=== PATIENT | male | born 1960 | race Caucasian/White ===

== ENCOUNTER 2016-12-16 11:44 | Emergency (ER) | payer SELFPAY ==
[~2016-12-16] VITALS: Ht 170.2 cm; Wt 75.5 kg
[2016-12-16 11:49] VITALS: Ht 170.2 cm; Wt 75.5 kg
--- NOTE | 2016-12-16 13:22 | ERA ---
ER Documentation Chief Complaint Date/Time DATE: 12/16/16 TIME: 13:22 Chief Complaint Pt referred to ED by primary MD for blood sugar: 677 HPI The patient is a 56-year-old male, presenting to the ER from his doctor's office because of high glucose of 677. He went to see his regular physician today for routine visit. He denies any symptoms, denies headache, dizziness, dry mouth, neck pain, chest pain, dyspnea, abdominal pain, dysuria, diarrhea, polyuria. He does not smoke, drink. He has diabetes and takes metformin 500 mg twice daily Past medical history: Diabetes mellitus Past surgical history: None ROS All systems reviewed and are negative except as per history of present illness. Medications Home Meds Active Scripts Metformin* (Glucophage*) 500 Mg Tab, 500 MG PO BID, #30 TAB Prov:TOMMY CORRIGAN MD 12/16/16 Reported Medications Metformin Hcl* (Metformin Hcl*) 500 Mg Tablet, 1000 MG PO WITH BREAKFAST DINNE, #30 TAB 12/16/16 Allergies Allergies: Coded Allergies: No Known Allergy (Unverified , 12/16/16) Physical Exam Vitals Vital Signs Date Time Temp Pulse Resp B/P Pulse Ox O2 Delivery O2 Flow Rate FiO2 12/16/16 11:49 97.9 58 14 93/64 100 Physical Exam Const: No acute distress. Head: Atraumatic. Eyes: Normal Conjunctiva. ENT: Normal External Ears, Nose and Mouth. Neck: Full range of motion. No meningismus. Resp: Clear to auscultation bilaterally. Cardio: Regular rate and rhythm, no murmurs. Abd: Soft, non distended, normal bowel sounds, non tender. Skin: No petechiae or rashes. Back: No midline or flank tenderness. Ext: No cyanosis, or edema. Neur: Awake and alert. No focal deficit Psych: Normal Mood and Affect. Result Diagram: 12/16/16 1340 12/16/16 1340 Results 24 hrs Laboratory Tests Test 12/16/16 13:34 12/16/16 13:40 12/16/16 15:39 Bedside Glucose 328mg/dL 311mg/dL Anion Gap 13 Basophils # 0.110^3/ul Basophils % 0.6% Blood Urea Nitrogen 16mg/dl Calcium Level 9.4mg/dl Carbon Dioxide Level 30mmol/L Chloride Level 97mmol/L Creatinine 0.58mg/dl Eosinophils # 0.310^3/ul Eosinophils % 3.6% Glucose Level 321mg/dl Hematocrit 40.9% Hemoglobin 14.2g/dl Lactic Acid Level 0.9mmol/L Lymphocytes # 3.210^3/ul Lymphocytes % 41.1% Mean Corpuscular Hemoglobin 29.3pg Mean Corpuscular Hemoglobin Concent 34.6g/dl Mean Corpuscular Volume 84.7fl Mean Platelet Volume 9.5fl Monocytes # 0.410^3/ul Monocytes % 4.7% Neutrophils # 3.910^3/ul Neutrophils % 50.0% Nucleated Red Blood Cells # 0.010^3/ul Nucleated Red Blood Cells % 0.0/100WBC Platelet Count 70242^3/UL Potassium Level 5.0mmol/L Red Blood Count 4.8410^6/ul Red Cell Distribution Width 12.2% Sodium Level 135mmol/L Urine Bilirubin NEGATIVE Urine Clarity CLEAR Urine Color LT. YELLOW Urine Glucose >=1000% Urine Hemoglobin NEGATIVE Urine Ketones NEGATIVE Urine Leukocyte Esterase NEGATIVE Urine Nitrite NEGATIVE Urine Specific [place] 1.025 Urine Total Protein NEGATIVE Urine Urobilinogen 0.2 E.U./dL Urine pH 5.5 White Blood Count 7.810^3/ul Current Medications Medications (Trade) Dose Ordered Sig/Hever Route PRN Reason Start Time Stop Time Status Last Admin Dose Admin Sodium Chloride 1,000 ml @ 1,000 mls/hr Q1H STAT IV 12/16/16 13:26 12/16/16 14:25 DC 12/16/16 13:51 Sodium Chloride (NS) 1,000 ml @ 1,000 mls/hr Q1H ONCE IV 12/16/16 13:30 12/16/16 14:29 DC 12/16/16 13:52 Insulin Human Regular (Humulin R) 6 unit ONCE ONCE SC 12/16/16 15:30 12/16/16 15:35 DC Procedures/MDM MEDICAL MAKING DECISION: The patient is a 56-year-old male, presenting acute diabetic hyperglycemia. I have order for 2 L normal saline IV and 6 units of Regular Insulin subcu. however patient declined the IV fluid. Risks, benefits, alternatives were explained to the patient. The differential diagnoses considered include but are not limited to DKA, HHS, dehydration, UTI, pneumonia , medical noncompliance. His blood pressure and glucose improved Departure Diagnosis: Primary Impression: Hyperglycemia due to type 2 diabetes mellitus Condition: Good Comments He was discharged with metformin I discussed the findings with the patient. I advised the patient to follow-up with the primary physician in about 1-2 days, sooner if needed and return if any concern. TOMMY CORRIGAN MD Dec 16, 2016 13:22
[2016-12-16] MEDS ORDERED: SOD CHLORIDE 0.9% 1,000 ML IV STA (13:26)
[2016-12-16] MEDS ORDERED: SOD CHLORIDE 0.9% 1,000 ML IV ONE (13:30)
[2016-12-16] MEDS ORDERED: METF-382 PO (13:48)
[2016-12-16 14:00] LABS: ADD UMIC NO; BASOPHIL # 0.1 10^3/ul (0.0-0.1); BASOPHILS % 0.6 % (0.0-2.0); EOSINOPHILS # 0.3 10^3/ul (0.0-0.5); EOSINOPHILS % 3.6 % (0.0-7.0); HEMATOCRIT 40.9 % (42.0-52.0); HEMOGLOBIN 14.2 g/dl (14.0-18.0); LYMPHOCYTES # 3.2 10^3/ul (0.8-2.9); LYMPHOCYTES % 41.1 % (15.0-51.0); MEAN CORPUSCULAR HEMOGLOBIN 29.3 pg (29.0-33.0); MEAN CORPUSCULAR HGB CONC 34.6 g/dl (32.0-37.0); MEAN CORPUSCULAR VOLUME 84.7 fl (82.0-101.0); MEAN PLATELET VOLUME 9.5 fl (7.4-10.4); MONOCYTE # 0.4 10^3/ul (0.3-0.9); MONOCYTES % 4.7 % (0.0-11.0); NEUTROPHIL # 3.9 10^3/ul (1.6-7.5); PLATELET COUNT 224 10^3/UL (140-440); RED BLOOD COUNT 4.84 10^6/ul (4.70-6.10); RED CELL DISTRIBUTION WIDTH 12.2 % (11.5-14.5); UNCORRECTED WBC 7.8 10^3/ul (4.8-10.8); URINE BILIRUBIN (Dip) NEGATIVE (NEGATIVE); URINE BLOOD (Dip) NEGATIVE (NEGATIVE); URINE COLOR LT. YELLOW (YELLOW); URINE GLUCOSE (Dip) >=1000 % (NEGATIVE); URINE KETONES (Dip) NEGATIVE (NEGATIVE); URINE LEUKOCYTE ESTERASE (Dip) NEGATIVE (NEGATIVE); URINE NITRITE (Dip) NEGATIVE (NEGATIVE); URINE TOTAL PROTEIN (Dip) NEGATIVE (NEGATIVE); URINE UROBILINOGEN (Dip) 0.2 E.U./dL (0.1-1.0); WHITE BLOOD COUNT 7.8 10^3/ul (4.8-10.8)
[2016-12-16 14:01] LABS: CONDITION 1
[2016-12-16 14:13] LABS: CREATININE 0.58 mg/dl (0.61-1.24)
[2016-12-16 14:14] LABS: CALCIUM 9.4 mg/dl (8.4-10.2)
[2016-12-16] MEDS ORDERED: INSULIN REGULAR, HUMAN 100 UNIT/1 ML 3ML VIAL SC ONE (15:30)
[2016-12-16] MEDS ORDERED: METF500T4 PO (15:32)
[2016-12-16 15:53] VITALS: BP 156/86; PULSE 67; RESP 18; TEMP 98.6
== END 2016-12-16 16:24 | disposition home or self-care (01) ==
LOC: E/R 11:44
DX: E11.65 Type 2 diabetes mellitus with hyperglycemia (principal); Z79.84 Long term (current) use of oral hypoglycemic drugs
CPT/HCPCS: 36415; 80048; 81003; 82962; 83605; 85025; 96372; 99284; J1815; J7030